=== PATIENT | male | born 1945 | race Caucasian/White ===

== ENCOUNTER → 2017-10-24 | Outpatient (CLI) | payer MEDICARE, OTHER ==
[~2017-10-24] MED LIST: ALLOPURINOL100 MG PO; AZOPT10 ML; FINASTERIDE5 MG PO; LOTREL 5-10 MG1 EACH PO; LUMIGAN2.5 M1 OP
--- NOTE | 2017-10-24 12:48 | Diagnostic Imaging Report ---
PROCEDURE:X-RAY ABDOMEN - KUB COMPARISON:Patients [facility], CT, CT ABDOMEN/PELVIS WO, 09/19/2016, 8:37. Patients [facility], DX, ABDOMEN-1VIEW (KUB), 03/02/2017, 10:55. INDICATIONS:CALCULI OF KIDNEY FINDINGS: Also there are gas pattern. Ill-defined 4 mm radiopaque density projecting between the posterior aspect of the left 11th and 12th ribs, which may represent the previously visualized nonobstructing calculus in the inferior pole of the left kidney. No other radiopaque densities project over the renal shadows, expected course of the ureters or bladder. Stable pelvic phleboliths. No acute bony abnormalities. CONCLUSION: Ill-defined 4 mm radiopaque density in the left upper quadrant may represent the previously visualized nonobstructing calculus in the inferior pole of the left kidney on CT. No other radiopaque densities project over the genitourinary system. Enzo Espinal M.D. Dictated by: Enzo Espinal M.D. on 10/24/2017 at 12:50 Electronically approved by: Enzo Espinal M.D. on 10/24/2017 at 12:50
--- NOTE | 2017-10-24 14:07 | Diagnostic Imaging Report ---
PROCEDURE:US RETROPERITONEAL ( KIDNEY ). COMPARISON:Patients [facility], CT, CT ABDOMEN/PELVIS WO, 09/19/2016, 8:37. INDICATIONS:CALCULUS OF KIDNEY TECHNIQUE: Araujo-scale and color sonographic images of the bilateral kidneys and bladder where obtained in transverse and longitudinal planes. FINDINGS: RIGHT KIDNEY: 11.5 cm, cortex 1.3 cm Cysts: Several cystic, anechoic lesions are noted: * 1.5 x 1.7 x 1.5 cm cystic, anechoic lesion in the lateral inferior pole, stable. * 4.2 x 3.3 x 3.7 cm mostly exophytic cystic, anechoic lesion in the mid aspect, stable. * 4.2 x 3.8 x 4.6 cm cystic, anechoic lesion in the medial mid aspect, stable. * 2.8 x 2.2 x 2.2 cystic, anechoic lesion in the mid aspect, stable Solid masses: None Stones: None Hydronephrosis: None Echogenicity: Increased LEFT KIDNEY: 12.0 cm, cortex 1.5 cm Cysts: Several cystic, anechoic lesions are noted: * 5.9 x 5.0 x 5.3 cm cystic, anechoic mostly exophytic lesion in the superior pole, stable. * 0.9 x 0.8 x 1.0 cm cystic, anechoic lesion in the inferior pole, decreased in size (previously measured approximately 1.8 x 1.3 x 1.9 cm). * 1.5 x 1.0 x 1.6 cm cystic, anechoic lesion in the mid aspect, stable Solid masses: None Stones: None Hydronephrosis: None Echogenicity: Increased Bladder: No focal lesions. Bilateral ureteral jets are identified. Prostate: 5.4 x 5.3 x 6.6 cm (estimated volume 96.8 CC) CONCLUSION: 1. Normal bilateral renal size. Increased renal cortical echogenicity, consistent with medical renal disease. 2. Multiple bilateral simple renal cysts, as described. All visualized cysts are stable, except for a 1.0 cm simple cyst in the inferior pole of the left kidney, which is slightly decreased in size. 3. Prostatomegaly, likely due to BPH. Enzo Espinal M.D. Dictated by: Enzo Espinal M.D. on 10/24/2017 at 14:09 Electronically approved by: Enzo Espinal M.D. on 10/24/2017 at 14:09
== END ==
LOC: US 10:06
PROVIDERS: ATTEND Urology
DX: N20.0 Calculus of kidney (principal)
CPT/HCPCS: 74018; 76770

== ENCOUNTER → 2017-11-08 | Outpatient (CLI) | payer MEDICARE, OTHER ==
--- NOTE | 2017-11-08 09:40 | Diagnostic Imaging Report ---
PROCEDURE: CT ABDOMEN AND PELVIS WITHOUT CONTRAST TECHNIQUE: The abdomen and pelvis were scanned utilizing a multidetector helical scanner from the diaphragm to the lesser trochanter. No oral or intravenous contrast was administered per renal stone protocol. Coronal and sagittal multiplanar reformations were obtained. COMPARISON: 09/19/2016 INDICATIONS: RENAL STONES FINDINGS: ABSENCE OF INTRAVENOUS CONTRAST DECREASES SENSITIVITY FOR DETECTION OF FOCAL LESIONS AND VASCULAR PATHOLOGY. LOWER THORAX: Bandlike atelectasis or fibrotic change in the lower lobes . No pleural or pericardial effusion. HEPATOBILIARY: No focal hepatic lesion or intrahepatic biliary ductal dilatation. Small calculi layering in the dependent portion of the gallbladder. No wall thickening or adjacent inflammatory change. SPLEEN: No splenomegaly. PANCREAS: No focal masses or ductal dilatation. ADRENALS: No adrenal nodules. KIDNEYS/URETERS: Bilateral Jef's plaques. 5.5 cm left upper pole exophytic cyst is unchanged. Scattered right renal cysts measuring up to 4.5 cm are stable to marginally increased in size. All lesions have average internal attenuation less than 20 Hounsfield units. Punctate nonobstructing right renal calculus seen on series 3 image 67. 3-4 mm nonobstructing left renal calculus seen on series 3 image 83. Remaining bilateral renal calculi described on the comparison examination are no longer visualized. No ureteral or bladder calculi. PELVIC ORGANS/BLADDER: Prostatomegaly with (6.6 cm transversely) with coarse prostatic calcifications. Urinary bladder is incompletely distended but is otherwise unremarkable. PERITONEUM / RETROPERITONEUM: No free air or fluid. LYMPH NODES: No pelvic sidewall, retroperitoneal, or mesenteric lymphadenopathy. VESSELS: The abdominal aorta is non-aneurysmal with atherosclerotic calcification. Evaluation is otherwise limited in the absence of intravenous contrast. GI TRACT: The large bowel shows no evidence of distention or wall thickening. Scattered diverticula along the course of the large bowel without evidence of diverticulitis. Normal appendix. Diverticulum projects superiorly from the fourth portion of the duodenum, unchanged. No small bowel dilatation to suggest obstruction. BONES AND SOFT TISSUES: The soft tissues show postsurgical changes probably related to right inguinal hernia repair. Small fat containing left inguinal hernia. No osseous destructive lesions. Multilevel degenerative disc changes and degenerative facet arthropathy of the lumbar spine. IMPRESSION: Decreased bilateral renal stone burden relative to 09/19/2016. No ureteral calculi or hydronephrosis. Prostatomegaly. Atherosclerotic vascular disease. Dictated by: Asif Dunne M.D. on 11/08/2017 at 9:42 Electronically approved by: Asif Dunne M.D. on 11/08/2017 at 9:42
== END ==
LOC: CT 08:35
PROVIDERS: ATTEND Urology
DX: N20.0 Calculus of kidney (principal)
CPT/HCPCS: 74176

== ENCOUNTER → 2018-04-03 | Outpatient (CLI) | payer MEDICARE, OTHER ==
--- NOTE | 2018-04-03 11:28 | Diagnostic Imaging Report ---
EXAMINATION: ABDOMEN-1VIEW (KUB) INDICATION: Renal calculus. COMPARISON: None FINDINGS: There is a 4 mm calcification overlying the right lower pole kidney. No evidence of calcification overlying the expected position of the ureters. Bilateral calcified phleboliths in the pelvis. There is a nonobstructive bowel gas pattern. There is no free intraperitoneal air. The bony structures are unremarkable. IMPRESSION: Likely 4 mm right lower pole renal stone. Signed by: Dr. Justyna Musa MD on 04/03/2018 11:24 AM
== END ==
LOC: RAD 10:49
PROVIDERS: ATTEND Urology
DX: N20.0 Calculus of kidney (principal)
CPT/HCPCS: 74018

== ENCOUNTER → 2018-04-20 | Outpatient (CLI) | payer MEDICARE, OTHER ==
--- NOTE | 2018-04-20 12:22 | Diagnostic Imaging Report ---
EXAMINATION: CT of the abdomen and pelvis without contrast. TECHNIQUE: Helical CT images of the abdomen and pelvis were performed from the lung bases to the lesser trochanters. No intravenous contrast was given per renal stone protocol. Coronal and sagittal reformatted images were obtained.Dose modulation, iterative reconstruction, and/or weight based adjustment of the mA/kV was utilized to reduce the radiation dose to as low as reasonably achievable. COMPARISON: November 08, 2017 CLINICAL HISTORY:Renal calculus DISCUSSION: ABSENCE OF INTRAVENOUS CONTRAST DECREASES SENSITIVITY FOR DETECTION OF FOCAL LESIONS AND VASCULAR PATHOLOGY. ABDOMEN/PELVIS: LOWER THORAX: Unremarkable. HEPATOBILIARY:No focal hepatic lesions. No biliary ductal dilation. The gallbladder is normal. SPLEEN: No splenomegaly. PANCREAS: No focal masses or ductal dilatation. ADRENALS: No adrenal nodules. KIDNEYS/URETERS: No hydronephrosis. Atrophy and perinephric stranding of the kidneys. Bilateral renal cysts, simple largest in the right kidney measuring 4.9 cm and the largest in the left kidney measuring 5.4 cm. Bilateral nonobstructing renal calculi (2 on the right with the largest measuring 2 mm and one on the left measuring 3 mm. PELVIC ORGANS/BLADDER: The bladder is normal. Calcifications within the seminal vesicles. PERITONEUM/RETROPERITONEUM: No free air or fluid. LYMPH NODES: No intra-abdominal,retroperitoneal, pelvic or inguinal lymphadenopathy. VESSELS: The celiac trunk,superior and inferior mesenteric and bilateral renal arteries are patent The portal, superior mesenteric and splenic veins are patent. GI TRACT: No distention or wall thickening. Duodenal diverticulum. Scattered colonic diverticulosis. BONES AND SOFT TISSUES: Fat-containing left inguinal hernia. IMPRESSION: Bilateral small nonobstructive renal calculi. Simple bilateral renal cysts. Signed by: Dr. Thomas Torres M.D. on 04/20/2018 12:19 PM
== END ==
LOC: CT 09:28
PROVIDERS: ATTEND Urology
DX: N20.0 Calculus of kidney (principal)
CPT/HCPCS: 74176

== ENCOUNTER 2018-12-10 11:52 | Emergency (ER) | payer MEDICARE, OTHER ==
[~2018-12-10] VITALS: Ht 177.8 cm; Wt 86.2 kg
--- OUTSIDE RECORDS SUMMARY | 2018-12-10 11:55 | XMS REPORT ---
Author Author [facility] Address Unknown Phone Unavailable Care Team Providers Care Parcel Wrapper Name Role Phone ADDISON HENDERSON Unavailable Unavailable Problems This patient has no known problems. Allergies, Adverse Reactions, Alerts This patient has no known allergies or adverse reactions. Medications This patient has no known medications. Results Test Description Test Time Test Comments Text Results Atomic Results Result Comments CT ABDOMEN/PELVIS WO 2018-04-20 12:11:00 [place] [address] Patient Name: RONNIE RAMON MR #: [id number] : 1945 Age/Sex: 73/M Req #: [id number] Adm Physician: Ordered by: ADDISON HENDERSON MD Report #: [id number] Location: CT Room/Bed: Procedure: [id number] CT/CT ABDOMEN/PELVIS WO Exam Date: 04/20/18 Exam Time: 1000 REPORT STATUS: Signed EXAMINATION: CT of the abdomen and pelvis without contrast. TECHNIQUE: Helical CT images of the abdomen and pelvis were performed from the lung bases to the lesser trochanters. No intravenous contrast was given per renal stone protocol. Coronal and sagittal reformatted images were obtained.Dose modulation, iterative reconstruction, and/or weight based adjustment of the mA/kV was utilized to reduce the radiation dose to as low as reasonably achievable. COMPARISON: November 08, 2017 CLINICAL HISTORY:Renal calculus DISCUSSION: ABSENCE OF INTRAVENOUS CONTRAST DECREASES SENSITIVITY FOR DETECTION OF FOCAL LESIONS AND VASCULAR PATHOLOGY. ABDOMEN/PELVIS: LOWER THORAX: Unremarkable. HEPATOBILIARY:No focal hepatic lesions. No biliary ductal dilation. The gallbladder is normal. SPLEEN: No splenomegaly. PANCREAS: No focal masses or ductal dilatation. ADRENALS: No adrenal nodules. KIDNEYS/URETERS: No hydronephrosis. Atrophy and perinephric stranding of the kidneys. Bilateral renal cysts, simple largest in the right kidney measuring 4.9 cm and the largest in the left kidney measuring 5.4 cm. Bilateral nonobstructing renal calculi (2 on the right with the largest measuring 2 mm and one on the left measuring 3 mm. PELVIC ORGANS/BLADDER: The bladder is normal. Calcifications within the seminal vesicles. PERITONEUM/RETROPERITONEUM: No free air or fluid. LYMPH NO HALLIE: No intra-abdominal,retroperitoneal, pelvic or inguinal lymphadenopathy. VESSELS: The celiac trunk,superior and inferior mesenteric and bilateral renal arteries are patent The portal, superior mesenteric and splenic veins are patent. GI TRACT: No distention or wall thickening. Duodenal diverticulum. Scattered colonic diverticulosis. BONES AND SOFT TISSUES: Fat-containing left inguinal hernia. IMPRESSION: Bilateral small nonobstructive renal calculi. Simple bilateral renal cysts. Signed by: Dr. Renetta Burr M.D. on 04/20/2018 12:19 PM Dictated By: RENETTA BURR MD 1219 Transcribed By: CORWIN on 04/20/18 1219 COPY TO: ADDISON HENDERSON MD [facility] 2018-04-03 11:22:00 [place] [address] Patient Name: RONNIE RAMON MR #: [id number] : 1945 Age/Sex: 73/M Req #: [id number] Adm Physician: Ordered by: ADDISON HENDERSON MD Report #: [id number] Location: [facility] Room/Bed: Procedure: [id number] DX/ABDOMEN-1VIEW (KUB) Exam Date: Exam Time: REPORT STATUS: Signed EXAMINATION: ABDOMEN-1VIEW (KUB) INDICATION: Renal calculus. COMPARISON: None FINDINGS: There is a 4 mm calcification overlying the right lower pole kidney. No evidence of calcification overlying the expected position of the ureters. Bilateral calcified phleboliths in the pelvis. There is a nonobstructive bowel gas pattern. There is no free intraperitoneal air. The bony structures are unremarkable. IMPRESSION: Likely 4 mm right lower pole renal stone. Signed by: Dr. Ashish Pablo MD on 04/03/2018 11:24 AM Dictated By: ASHISH PABLO MD 23 Transcribed By: CORWIN on 04/03/181123 COPY TO: ADDISON HENDERSON MD CT ABDOMEN/PELVIS WO [place] [address] Patient Name: RONNIE RAMON MR #: [id number] : 1945 Age/Sex: 72/M Req #: [id number] Adm Physician: Ordered by: ADDISON HENDERSON MD Report #: [id number] Location: CT Room/Bed: Procedure: [id number] CT/CT ABDOMEN/PELVIS WO Exam Date: 11/08/17 Exam Time: 904 REPORT STATUS: Signed PROCEDURE: CT ABDOMEN AND PELVIS WITHOUT CONTRAST TECHNIQUE: The abdomen and pelvis were scanned utilizing a multidetector helical scanner from the diaphragm to the lesser trochanter. No oral or intravenous contrast was administered per renal stone protocol. Coronal and sagittal multiplanar reformations were obtained. COMPARISON: 09/19/2016 INDICATIONS: RENAL STONES FINDINGS: ABSENCE OF INTRAVENOUS CONTRAST DECREASES SENSITIVITY FOR DETECTION OF FOCAL LESIONS AND VASCULAR PATHOLOGY. LOWER THORAX: Bandlike atelectasis or fibrotic change in the lower lobes . No pleural or pericardial effusion. HEPATOBILIARY: No focal hepatic lesion or intrahepatic biliary ductal dilatation. Small calculi layering in the dependent portion of the gallbladder. No wall thickening or adjacent inflammatory change. SPLEEN: No splenomegaly. PANCREAS: No focal masses or ductal dilatation. ADRENALS: No adrenal nodules. KIDNEYS/URETERS: Bilateral Jef's plaques. 5.5 cm left upper pole exophytic cyst is unchanged. Scattered right renal cysts measuring up to 4.5 cm are stable to marginally increased in size. All lesions have average internal attenuation less than 20 Hounsfield units. Punctate nonobstructing right renal calculus seen on series 3 image 67. 3-4 mm nonobstructing left renal calculus seen on series 3 image 83. Remaining bilateral renal calculi described on the comparison examination are no longer visualized. No ureteral or bladder calculi. PELVIC ORGANS/BLADDER: Prostatomegaly with (6.6 cm transversely) with coarse prostatic calcifications. Urinary bladder is incompletely distended but is otherwise unremarkable. PERITONEUM / RETROPERITONEUM: No free air or fluid. LYMPH NODES: No pelvic sidewall, retroperitoneal, or mesenteric lymphadenopathy. VESSELS: The abdominal aorta is non-aneurysmal with atherosclerotic calcification. Evaluation is otherwise limited in the absence of intravenous contrast. GI TRACT: The large bowel shows no evidence of distention or wall thickening. Scattered diverticula along the course of the large bowel without evidence of diverticulitis. Normal appendix. Diverticulum projects superiorly from the fourth portion of the duodenum, unchanged. No small bowel dilatation to suggest obstruction. BONES AND SOFT TISSUES: The soft tissues show postsurgical changes probably related to right inguinal hernia repair. Small fat containing left inguinal hernia. No osseous destructive lesions. Multilevel degenerative disc changes and degenerative facet arthropathy of the lumbar spine. IMPRESSION: Decreased bilateral renal stone burden relative to 09/19/2016. No ureteral calculi or hydronephrosis. Prostatomegaly. Atherosclerotic vascular disease. Dictated by: Latanya Chiu M.D. on 11/08/2017 at 9:42 Electronically approved by: Latanya Chiu M.D. on 11/08/2017 at 9:42 Dictated By: LATANYA CHIU MD 1 Transcribed By: EYAL on 11/08/17941 COPY TO: ADDISON HENDERSON MD ABDOMEN-1VIEW (KUB) [place] [address] Patient Name: RONNIE RAMON MR #: [id number] : 1945 Age/Sex: 72/M Req #: [id number] Adm Physician: Ordered by: ADDISON HENDERSON MD Report #: [id number] Location: Room/Bed: Procedure: [id number] DX/ABDOMEN-1VIEW (KUB) Exam Date: 10/24/17 Exam Time: 1035 REPORT STATUS: Signed PROCEDURE: X-RAY ABDOMEN - KUB COMPARISON: [facility], CT, CT ABDOMEN/PELVIS WO, 09/19/2016, 8:37. [facility], DX, ABDOMEN-1VIEW (KUB), 03/02/2017, 10:55. INDICATIONS: CALCULI OF KIDNEY FINDINGS: Also there are gas pattern. Ill-defined 4 mm radiopaque density projecting between the posterior aspect of the left 11th and 12th ribs, which may represent the previously visualized nonobstructing calculus in the inferior pole of the left kidney. No other radiopaque densities project over the renal shadows, expected course of the ureters or bladder. Stable pelvic phleboliths. No acute bony abnormalities. CONCLUSION: Ill-defined 4 mm radiopaque density in the left upper quadrant may represent the previously visualized nonobstructing calculus in the inferior pole of the left kidney on CT. No other radiopaque densities project over the genitourinary system. Jorge L Espinal M.D. Dictated by: Jorge L Espinal M.D. on 10/24/2017 at 12:50 Electronically approved by: Jorge L Espinal M.D. on 10/24/2017 at 12:50 Dictated By: JORGE L ESPINAL MD 1250 Trans cribed By: EYAL on 10/24/17 1250 COPY TO: ADDISON HENDERSON MD US RENAL RETROPERITONEAL COMP [place] [address] Patient Name: RONNIE RAMON MR #: [id number] : 1945 Age/Sex: 72/M Req #: [id number] Adm Physician: Ordered by: ADDISON HENDERSON MD Report #: [id number] Location: Room/Bed: Procedure: [id number] US/US RENAL RETROPERITONEAL COMP Exam Date: 10/24/17 Exam Time: 1101 REPORT STATUS: Signed PROCEDURE: US RETROPERITONEAL ( KIDNEY ). COMPARISON: Patients [facility], CT, CT ABDOMEN/PELVIS WO, 09/19/2016, 8:37. INDICATIONS: CALCULUS OF KIDNEY TECHNIQUE: Araujo-scale and color sonographic images of the bilateral kidneys and bladder where obtained in transverse and longitudinal planes. FINDINGS: RIGHT KIDNEY: 11.5 cm, cortex 1.3 cm Cysts: Several cystic, anechoic lesions are noted: * 1.5 x 1.7 x 1.5 cm cystic, anechoic lesion in the lateral inferior pole, stable. * 4.2 x 3.3 x 3.7 cm mostly exophytic cystic, anechoic lesion in the mid aspect, stable. * 4.2 x 3.8 x 4.6 cm cystic, anechoic lesion in the medial mid aspect, stable. * 2.8 x 2.2 x 2.2 cystic, anechoic lesion in the mid aspect, stable Solid masses: None Stones: None Hydronephrosis: None Echogenicity: Increased LEFT KIDNEY: 12.0 cm, cortex 1.5 cm Cysts: Several cystic, anechoic lesions are noted: * 5.9 x 5.0 x 5.3 cm cystic, anechoic mostly exophytic lesion in the superior pole, stable. * 0.9 x 0.8 x 1.0 cm cystic, anechoic lesion in the inferior pole, decreased in size (previously measured approximately 1.8 x 1.3 x 1.9 cm). * 1.5 x 1.0 x 1.6 cm cystic, anechoic lesion in the mid aspect, stable Solid masses: None Stones: None Hydronephrosis: None Echogenicity: Increased Bladder: No focal lesions. Bilateral ureteral jets are identified. Prostate: 5.4 x 5.3 x 6.6 cm (estimated volume 96.8 CC) CONCLUSION: 1. Normal bilateral renal size. Increased renal cortical echogenicity, consistent with medical renal disease. 2. Multiple bilateral simple renal cysts, as described. All visualized cysts are stable, except for a 1.0 cm simple cyst in the inferior pole of the left kidney, which is slightly decreased in size. 3. Prostatomegaly, likely due to BPH. Jorge L Espinal M.D. Dictated by: Jorge L Espinal M.D. on 10/24/2017 at 14:09 Electronically approved by: Jorge L Espinal M.D. on 10/24/2017 at 14:09 Dictated By: JORGE L ESPINAL MD 08 Transcribed By: EYAL on 10/24/171408 COPY TO: ADDISON HENDERSON MD ABDOMEN-1VIEW ([facility]) [place] [address] Patient Name: RONNIE RAMON MR #: [id number] : 1945 Age/Sex: 72/M Req #: [id number] [facility] Physician: Ordered by: ADDISON HENDERSON MD Report #: [id number] Location: [facility] Room/Bed: Procedure: [id number] DX/ABDOMEN-1VIEW (KUB) Exam Date: 03/02/17 Exam Time: 1100 REPORT STATUS: Signed PROCEDURE: X-RAY ABDOMEN - KUB COMPARISON: Abdomen one view 10/28/2016. CT abdomen and pelvis 09/19/2016 INDICATIONS: HISTORY OF CALCULI FINDINGS: There is a non-obstructed bowel-gas pattern. There are no calcifications projected over the renal shadows, expected course of the ureters or bladder. There are no acute osseous abnormalities. The lung bases are clear. Phleboliths are present in the pelvis. CONCLUSION: No acute radiographic abnormality. Dictated by: Parker Tai M.D. on 03/02/2017 at 11:41 Electronically approved by: Parker Tai M.D. on 03/02/2017 at 11:41 Dictated By: PARKER TAI MD 1141 Transcribed By: EYAL on 03/02/17 1141 COPY TO: ADDISON HENDERSON MD
[2018-12-10] MEDS ORDERED: ASPIRIN 81 MG CHEW TAB PO ONE (12:15)
[2018-12-10 12:33] LABS: BASOPHILS % 0.3 % (0.0-1.0); EOSINOPHILS % 0.3 % (0.0-6.0); HEMATOCRIT 38.9 % (38.2-49.6); HEMOGLOBIN 13.3 g/dL (14.0-18.0); LYMPHOCYTES % 10.3 % (18.0-39.1); MEAN CORPUSCULAR HGB CONC 34.2 g/dL (31-35); MEAN CORPUSCULAR VOLUME 90.7 fL (81-99); MONOCYTES # (AUTO) 0.4 (0.2-0.8); MONOCYTES % 4.3 % (4.4-11.3); NEUTROPHILS # (AUTO) 8.6 (2.1-6.9); NEUTROPHILS % 84.4 % (38.7-80.0); PLATELET COUNT 206 x10e3/uL (140-360); RED BLOOD COUNT 4.29 x10e6/uL (4.3-5.7); RED CELL DISTRIBUTION WIDTH 13.2 % (11.7-14.4)
[2018-12-10 12:34] LABS: BILIRUBIN,URINE SMALL (NEGATIVE); CLARITY,URINE SL CLOUDY (CLEAR); COLOR,URINE YELLOW (YELLOW); KETONES,URINE NEGATIVE (NEGATIVE); LEUKOCYTE ESTERASE ,URINE TRACE (NEGATIVE); NITRITE,URINE NEGATIVE (NEGATIVE); PROTEIN,URINE DIPSTICK TRACE (NEGATIVE); URINE UROBILINOGEN 1 mg/dL (0.2 - 1)
[2018-12-10 12:57] LABS: ALANINE AMINOTRANSFERASE 34 IU/L (0-55); ALBUMIN/GLOBULIN RATIO 1.6 (0.8-2.0); ALKALINE PHOSPHATASE 61 IU/L (40-150); AMYLASE 57 U/L (25-125); ANION GAP 12.8 mmol/L (8-16); BLOOD UREA NITROGEN 21 mg/dL (7-26); BUN/CREATININE RATIO 14 (6-25); CALCIUM 9.1 mg/dL (8.4-10.2); CARBON DIOXIDE 23 mmol/L (22-29); CHLORIDE 107 mmol/L (98-107); CREATINE KINASE 111 IU/L (30-200); CREATININE, SERUM 1.53 mg/dL (0.72-1.25); EST GLOMERULAR FILTRATION RATE 45 ML/MIN (60-); GLUCOSE 174 mg/dL (74-118); LIPASE 30 U/L (8-78); POTASSIUM 3.8 mmol/L (3.5-5.1); SODIUM 139 mmol/L (136-145)
[2018-12-10 13:13] LABS: AMORPHOUS SEDIMENT,URINE MODERATE (FEW); BACTERIA,URINE FEW /HPF; EPITHELIAL CELLS,URINE FEW /LPF; MUCUS,URINE MODERATE (RARE); WBC,URINE (MAN) 0-5 /HPF (0-5)
[2018-12-10 13:15] LABS: CREATINE KINASE MB < 1.00 ng/mL (0-4.3)
--- NOTE | 2018-12-10 13:21 | Diagnostic Imaging Report ---
EXAMINATION: CHEST SINGLE (PORTABLE) INDICATION: Chest pain. COMPARISON: None FINDINGS: TUBES and LINES: None. LUNGS: Low lung volumes which decreases sensitivity and specificity for pathology. There is no evidence of pneumonia or pulmonary edema. PLEURA: No pleural effusion or pneumothorax. HEART AND MEDIASTINUM: The cardiomediastinal silhouette is unremarkable. BONES AND SOFT TISSUES: No acute osseous abnormality. UPPER ABDOMEN: No free air under the diaphragm. IMPRESSION: No acute radiographic abnormality. Signed by: Dr. Justyna Musa MD on 12/10/2018 1:17 PM
[2018-12-10 14:45] VITALS: BP 133/79
== END 2018-12-10 14:50 | disposition home or self-care (01) ==
LOC: ER 11:52
DX: R10.13 Epigastric pain (principal); K29.00 Acute gastritis without bleeding; I10 Essential (primary) hypertension; H40.9 Unspecified glaucoma
CPT/HCPCS: 36415; 71045; 80053; 81001; 82150; 82550; 82553; 83690; 84484; 85025; 93005; 99283

== ENCOUNTER → 2019-03-14 | Outpatient (CLI) | payer MEDICARE, OTHER ==
--- NOTE | 2019-03-14 11:28 | Diagnostic Imaging Report ---
CT of the abdomen and pelvis, without contrast, 03/14/2019. History: History of stones. Comparison: 04/20/2018. Technique: Multidetector CT scanning of the abdomen and pelvis was performed from the level of the lung bases to the inferior pubic rami without intravenous or oral contrast. Coronal and sagittal multiplanar reformations were obtained. RADIATION DOSE: Total DLP: 500 mGy*cm Dose modulation, iterative reconstruction, and/or weight based adjustment of the mA/kV was utilized to reduce the radiation dose to as low as reasonably achievable. Discussion: Examination is limited without contrast. Lung bases: There is bibasilar atelectasis. Abdomen: A 2 mm stone is present in the lower pole of the right kidney. A 3 mm stone is present in the lower pole of the left kidney. There is no evidence of hydronephrosis. Multiple simple cysts are present bilaterally, the largest on the right measuring 5.1 cm and the largest on the left measuring 3.5 cm. The liver, gallbladder, biliary tree, spleen, pancreas, and adrenal glands are unremarkable. The abdominal aorta is mildly calcified but within normal limits for size. There is no bowel dilatation. Scattered colonic diverticuli are present without evidence of adjacent inflammation. The appendix is visualized and is normal. There is no evidence of adenopathy or free fluid. Pelvis: The bladder is unremarkable. The prostate is enlarged measuring 6.8 cm in transverse diameter with several calcifications. Calcified phleboliths are present bilaterally. There is no evidence of free fluid or adenopathy. Bones and soft tissues: Degenerative changes are present throughout the lumbar spine without evidence of lytic or sclerotic lesion. There is grade 1 spondylolisthesis of L4 and L5 without evidence of spondylolysis. IMPRESSION: 1. Small nonobstructing bilateral renal calculi without significant change. 2. Bilateral simple renal cysts. 3. Scattered colonic diverticuli without evidence of diverticulitis. 4. Prostatomegaly. Signed by: Marco Will on 03/14/2019 11:24 AM
== END ==
LOC: CT 09:32
PROVIDERS: ATTEND Urology
DX: N20.0 Calculus of kidney (principal)
CPT/HCPCS: 74176

== ENCOUNTER → 2020-01-01 | Outpatient (CLI) | payer MEDICARE, OTHER ==
--- NOTE | 2020-01-01 12:47 | Diagnostic Imaging Report ---
Exam: KUB - 2 views Indication: Renal calculus Comparison: CT abdomen and pelvis of 03/14/2019 Findings: Left lower pole renal calculus measures up to 3 mm. Right renal calculi measure up to 4 mm. Nonobstructive bowel gas pattern. No free air. Phleboliths in the pelvis. No acute osseous injury. Impression: Bilateral renal calculi measure up to 4 mm on the right and 3 mm on the left. Signed by: Leonardo Alcantar MD on 01/01/2020 12:43 PM
== END ==
LOC: RAD 10:57
PROVIDERS: ATTEND Urology
DX: N20.0 Calculus of kidney (principal); N18.9 Chronic kidney disease, unspecified
CPT/HCPCS: 74018

== ENCOUNTER 2020-04-01 14:46 | Inpatient (IN) | payer MEDICARE, OTHER ==
[~2020-04-01] VITALS: Ht 177.8 cm; Wt 85.7 kg
[2020-04-01] MEDS ORDERED: ASPIRIN 81 MG CHEW TAB PO ONE (15:00)
[2020-04-01] MEDS ORDERED: SODIUM CHLORIDE 0.9% 500ML 500 ML IV STA ×2 (15:21→21:02)
[2020-04-01] MEDS ORDERED: ONDANSETRON HCL INJ 2MG/ML 2ML 2 MG/ML VIAL IV STA (15:21)
[2020-04-01 15:44] LABS: BASOPHILS # (AUTO) 0.1 (0.0-0.1); BASOPHILS % 0.4 % (0.0-1.0); EOSINOPHILS % 0.2 % (0.0-6.0); HEMATOCRIT 39.1 % (38.2-49.6); LYMPHOCYTES # (AUTO) 1.2 (1.0-3.2); LYMPHOCYTES % 9.1 % (18.0-39.1); MEAN CORPUSCULAR HEMOGLOBIN 30.4 pg (28-32); MEAN CORPUSCULAR HGB CONC 33.2 g/dL (31-35); MEAN CORPUSCULAR VOLUME 91.6 fL (81-99); MONOCYTES # (AUTO) 0.4 (0.2-0.8); MONOCYTES % 2.8 % (4.4-11.3); NEUTROPHILS # (AUTO) 11.5 (2.1-6.9); NEUTROPHILS % 87.1 % (38.7-80.0); PLATELET COUNT 202 x10e3/uL (140-360); RED BLOOD COUNT 4.27 x10e6/uL (4.3-5.7); RED CELL DISTRIBUTION WIDTH 12.6 % (11.7-14.4)
[2020-04-01] MEDS ORDERED: PANTOPRAZOLE 40 MG 10ML VIAL IV ONE (15:45)
[2020-04-01 15:53] LABS: INR 0.91; PARTIAL THROMBOPLASTIN TIME 25.2 seconds (23.8-35.5); PROTHROMBIN TIME 12.7 seconds (11.9-14.5)
[2020-04-01 16:03] LABS: ALBUMIN 3.8 g/dL (3.5-5.0); ALBUMIN/GLOBULIN RATIO 1.6 (0.8-2.0); ANION GAP 16.9 mmol/L (8-16); CALCIUM 8.6 mg/dL (8.4-10.2); CREATININE, SERUM 1.49 mg/dL (0.72-1.25); POTASSIUM 3.9 mmol/L (3.5-5.1)
[2020-04-01 16:09] LABS: CREATINE KINASE MB 1.3 ng/mL (0-5.0)
[2020-04-01] MEDS ORDERED: SODIUM CHLORIDE 0.9% 50ML 50 ML ONE (17:51)
[2020-04-01] MEDS ORDERED: IOPAMIDOL 370 MG/ML 200 ML INFUS..BTL INJ ONE (17:51)
[2020-04-01 19:22] LABS: BILIRUBIN,URINE NEGATIVE (NEGATIVE); CLARITY,URINE CLEAR (CLEAR); COLOR,URINE YELLOW (YELLOW); KETONES,URINE NEGATIVE (NEGATIVE); LEUKOCYTE ESTERASE ,URINE NEGATIVE (NEGATIVE); NITRITE,URINE NEGATIVE (NEGATIVE); PROTEIN,URINE DIPSTICK NEGATIVE (NEGATIVE); URINE UROBILINOGEN 1 mg/dL (0.2 - 1)
[2020-04-01 19:33] LABS: WBC,URINE (MAN) 0-5 /HPF (0-5)
[2020-04-01] MEDS ORDERED: ACETAMINOPHEN 325 MG TAB PO ONE (19:45)
[2020-04-01] MEDS ORDERED: ACETAMINOPHEN 325 MG TAB ONE (19:49)
[2020-04-01] MEDS: CEFEPIME 1GM/NS 0.9% 50 ML 50 ML IV SCH (19:52)
[2020-04-01] MEDS ORDERED: SODIUM CHLORIDE 0.9% 1000ML 1,000 ML IV ONE (20:30)
[2020-04-01] MEDS ORDERED: FLOMAX0.4 MG PO (23:18)
[2020-04-01] MEDS ORDERED: POTASSIUM CITR10 MEQ PO (23:18)
[2020-04-01 23:50] VITALS: BP 135/77
[2020-04-02] VITALS (8 sets, daily range): BP systolic 130–149; BP diastolic 74–82
[2020-04-02] MEDS ORDERED: AMLODIPINE BESYL5 MG PO (00:53)
[2020-04-02 05:20] LABS: BASOPHILS % 0.2 % (0.0-1.0); EOSINOPHILS % 0.1 % (0.0-6.0); HEMATOCRIT 37.3 % (38.2-49.6); HEMOGLOBIN 12.3 g/dL (14.0-18.0); LYMPHOCYTES # (AUTO) 1.2 (1.0-3.2); LYMPHOCYTES % 5.6 % (18.0-39.1); MEAN CORPUSCULAR HEMOGLOBIN 30.2 pg (28-32); MEAN CORPUSCULAR VOLUME 91.6 fL (81-99); MONOCYTES % 4.7 % (4.4-11.3); NEUTROPHILS # (AUTO) 18.6 (2.1-6.9); NEUTROPHILS % 88.5 % (38.7-80.0); PLATELET COUNT 192 x10e3/uL (140-360); RED BLOOD COUNT 4.07 x10e6/uL (4.3-5.7); RED CELL DISTRIBUTION WIDTH 12.8 % (11.7-14.4)
[2020-04-02 05:37] LABS: ANION GAP 13.2 mmol/L (8-16); CALCIUM 8.4 mg/dL (8.4-10.2); CREATININE, SERUM 1.5 mg/dL (0.72-1.25); POTASSIUM 4.2 mmol/L (3.5-5.1)
[2020-04-02] MEDS: CEFEPIME 1GM/NS 0.9% 50 ML 50 ML IV SCH ×2 (07:45→20:41)
[2020-04-02] MEDS: ALLOPURINOL 100 MG TAB PO SCH (09:00)
[2020-04-02] MEDS: POTASSIUM CITRATE ER 10 MEQ TAB PO SCH (09:00)
[2020-04-02] MEDS: AMLODIPINE BESYLATE 5 MG TAB PO SCH (09:00)
[2020-04-02] MEDS: FINASTERIDE 5 MG TAB PO SCH (09:00)
[2020-04-02] MEDS ORDERED: VANCOMYCIN 1GM/NS 250 ML 250 ML IV ONE (11:15)
[2020-04-02] MEDS: METRONIDAZOLE 500MG/NS 100ML 100 ML IV SCH (16:00)
[2020-04-02] MEDS: BIMATOPROST(OPTH) 2.5 ML BOTTLE OP SCH (20:41)
[2020-04-02] MEDS: TAMSULOSIN HCL 0.4 MG CAP PO SCH (20:41)
[2020-04-03] VITALS (12 sets, daily range): BP systolic 120–152; BP diastolic 52–79
[2020-04-03] MEDS: METRONIDAZOLE 500MG/NS 100ML 100 ML IV SCH ×3 (00:13→17:17)
[2020-04-03] MEDS: CEFEPIME 1GM/NS 0.9% 50 ML 50 ML IV SCH ×2 (07:41→20:42)
[2020-04-03] MEDS ORDERED: MIDAZOLAM HCL 2 MG/2 ML VIAL ONE (08:03)
[2020-04-03] MEDS ORDERED: FENTANYL CITRATE/PF 100MCG/2 ML INJ ONE (08:03)
[2020-04-03] MEDS: FINASTERIDE 5 MG TAB PO SCH (14:20)
[2020-04-03] MEDS: ALLOPURINOL 100 MG TAB PO SCH (14:20)
[2020-04-03] MEDS: POTASSIUM CITRATE ER 10 MEQ TAB PO SCH (14:20)
[2020-04-03] MEDS: AMLODIPINE BESYLATE 5 MG TAB PO SCH (14:20)
[2020-04-03] MEDS: TAMSULOSIN HCL 0.4 MG CAP PO SCH (20:42)
[2020-04-03] MEDS: BIMATOPROST(OPTH) 2.5 ML BOTTLE OP SCH (20:42)
[2020-04-04] VITALS: BP 118/76
[2020-04-04] MEDS: METRONIDAZOLE 500MG/NS 100ML 100 ML IV SCH ×2 (00:20→08:27)
[2020-04-04 04:00] VITALS: BP 121/90
[2020-04-04 05:11] VITALS: BP 107/72
[2020-04-04 08:04] VITALS: BP_SYST 126; BP_SYST 147; BP_DIAS 67; BP_DIAS 77
[2020-04-04 08:19] VITALS: BP 126/77
[2020-04-04] MEDS: CEFEPIME 1GM/NS 0.9% 50 ML 50 ML IV SCH (08:27)
[2020-04-04] MEDS: ALLOPURINOL 100 MG TAB PO SCH (08:28)
[2020-04-04] MEDS: AMLODIPINE BESYLATE 5 MG TAB PO SCH (08:28)
[2020-04-04] MEDS: FINASTERIDE 5 MG TAB PO SCH (08:28)
[2020-04-04 11:59] VITALS: BP 118/76
[2020-04-04 12:42] LABS: BASOPHILS # (AUTO) 0.1 (0.0-0.1); BASOPHILS % 0.5 % (0.0-1.0); EOSINOPHILS # (AUTO) 0.2 (0.0-0.4); EOSINOPHILS % 1.6 % (0.0-6.0); HEMATOCRIT 38.6 % (38.2-49.6); HEMOGLOBIN 12.7 g/dL (14.0-18.0); LYMPHOCYTES # (AUTO) 1.2 (1.0-3.2); LYMPHOCYTES % 10.4 % (18.0-39.1); MEAN CORPUSCULAR HEMOGLOBIN 30.6 pg (28-32); MEAN CORPUSCULAR HGB CONC 32.9 g/dL (31-35); MONOCYTES # (AUTO) 0.7 (0.2-0.8); PLATELET COUNT 157 x10e3/uL (140-360); RED BLOOD COUNT 4.15 x10e6/uL (4.3-5.7); RED CELL DISTRIBUTION WIDTH 13.1 % (11.7-14.4)
== END 2020-04-04 14:38 | disposition home or self-care (01) | DRG 872 ==
LOC: ER 16:09 → ERHOLD 21:06 → MED/SURG2 23:50
PROVIDERS: ADMIT Internal Medicine; ATTEND Internal Medicine
PROC: 0BDG4ZX Extraction of Left Upper Lung Lobe, Percutaneous Endoscopic Approach, Diagnostic (ICD-10-PCS; principal; 2020-04-03)
DX: A41.9 Sepsis, unspecified organism (principal); E87.2 Acidosis; R91.8 Other nonspecific abnormal finding of lung field; I10 Essential (primary) hypertension; E78.5 Hyperlipidemia, unspecified; Z20.828 Contact with and (suspected) exposure to other viral communicable diseases
CPT/HCPCS: 32405; 36415; 71045; 71250; 74177; 74470; 76705; 77012; 78227; 80048; 80053; 81001; 82150; 82550; 82553; 83605; 83690; 83880; 84484; 85025; 85610; 85730; 87040; 88305; 88342; 93005; 99152; 99153; 99284; A9537; J0692; J2250; J2405; J3010; J3370; J7030; J7040; Q9967; U0002

== ENCOUNTER → 2020-10-09 | Outpatient (CLI) | payer MEDICARE, OTHER ==
[~2020-10-09] MED LIST changes: +AMLODIPINE BESYL5 MG PO; +FLOMAX0.4 MG PO; +POTASSIUM CITR10 MEQ PO
== END ==
LOC: RAD 13:04
PROVIDERS: ATTEND Urology
DX: N20.0 Calculus of kidney (principal)
CPT/HCPCS: 71046; 74018

== ENCOUNTER → 2020-10-29 | Outpatient (CLI) | payer MEDICARE, OTHER | LOC: CT 14:05 | PROVIDERS: ATTEND Urology | DX: N20.0 Calculus of kidney (principal) | CPT/HCPCS: 74176 ==

== ENCOUNTER 2020-12-12 06:20 | Inpatient (IN) | payer MEDICARE, OTHER ==
[~2020-12-12] VITALS: Ht 177.8 cm; Wt 85.7 kg
[2020-12-12] MEDS ORDERED: SODIUM CHLORIDE 0.9% 1000ML 1,000 ML IV STA ×2 (06:24→07:43)
[2020-12-12 06:43] LABS: BASOPHILS # (AUTO) 0.1 (0.0-0.1); BASOPHILS % 0.3 % (0.0-1.0); EOSINOPHILS % 0.1 % (0.0-6.0); HEMATOCRIT 45.6 % (38.2-49.6); HEMOGLOBIN 14.8 g/dL (14.0-18.0); LYMPHOCYTES # (AUTO) 0.9 (1.0-3.2); LYMPHOCYTES % 4.4 % (18.0-39.1); MEAN CORPUSCULAR HEMOGLOBIN 29.8 pg (28-32); MEAN CORPUSCULAR HGB CONC 32.5 g/dL (31-35); MEAN CORPUSCULAR VOLUME 91.8 fL (81-99); MONOCYTES # (AUTO) 0.6 (0.2-0.8); MONOCYTES % 2.9 % (4.4-11.3); NEUTROPHILS # (AUTO) 18.2 (2.1-6.9); NEUTROPHILS % 91.6 % (38.7-80.0); PLATELET COUNT 246 x10e3/uL (140-360); RED BLOOD COUNT 4.97 x10e6/uL (4.3-5.7); RED CELL DISTRIBUTION WIDTH 14.4 % (11.7-14.4)
[2020-12-12 07:04] LABS: ALBUMIN 4.7 g/dL (3.5-5.0); ALBUMIN/GLOBULIN RATIO 1.3 (0.8-2.0); ANION GAP 19.2 mmol/L (8-16); CALCIUM 10.4 mg/dL (8.4-10.2); CREATININE, SERUM 2.44 mg/dL (0.72-1.25)
[2020-12-12 07:09] LABS: POTASSIUM 5.2 mmol/L (3.5-5.1)
[2020-12-12 07:10] LABS: CREATINE KINASE MB 1.9 ng/mL (0-5.0)
[2020-12-12 08:46] LABS: CLARITY,URINE CLEAR (CLEAR); COLOR,URINE YELLOW (YELLOW); LEUKOCYTE ESTERASE ,URINE NEGATIVE (NEGATIVE); NITRITE,URINE NEGATIVE (NEGATIVE); PROTEIN,URINE DIPSTICK 1+ (NEGATIVE)
[2020-12-12 08:47] LABS: KETONES,URINE 1+ (NEGATIVE); URINE UROBILINOGEN 0.2 mg/dL (0.2 - 1)
[2020-12-12 09:19] LABS: BACTERIA,URINE RARE /HPF; EPITHELIAL CELLS,URINE FEW /LPF
[2020-12-12] MEDS ORDERED: ONDANSETRON HCL INJ 2MG/ML 2ML 2 MG/ML VIAL IV PRN (09:45)
[2020-12-12] MEDS ORDERED: CEFTRIAXONE 1 GM in SODIUM CHLORIDE 0.9% 50ML 50 ML IV ONE (09:45)
[2020-12-12 12:14] VITALS: BP 141/88
[2020-12-12] MEDS: SODIUM CHLORIDE 0.9% 1000ML 1,000 ML IV SCH ×2 (12:27→19:02)
[2020-12-12] MEDS: FINASTERIDE 5 MG TAB PO SCH (12:27)
[2020-12-12] MEDS ORDERED: SYMBICORT 16010.2 GM INH (12:30)
[2020-12-12] MEDS: CEFTRIAXONE 1 GM in SODIUM CHLORIDE 0.9% 50ML 50 ML IV SCH (12:45)
[2020-12-12 12:58] VITALS: BP 141/88
[2020-12-12 13:42] LABS: HEMATOCRIT 41.2 % (38.2-49.6); MEAN CORPUSCULAR HEMOGLOBIN 29.3 pg (28-32); MEAN CORPUSCULAR HGB CONC 31.6 g/dL (31-35); PLATELET COUNT 209 x10e3/uL (140-360); RED BLOOD COUNT 4.43 x10e6/uL (4.3-5.7); RED CELL DISTRIBUTION WIDTH 14.3 % (11.7-14.4)
[2020-12-12 13:57] LABS: ANION GAP 15.6 mmol/L (8-16); CALCIUM 9.1 mg/dL (8.4-10.2); CREATININE, SERUM 1.96 mg/dL (0.72-1.25); POTASSIUM 4.6 mmol/L (3.5-5.1)
[2020-12-12 17:03] VITALS: BP 148/87
[2020-12-12] MEDS: BUDESONIDE/FORMOTEROL 160/4.5MCG INHALER INH SCH ×2 (19:00→23:31)
[2020-12-12 19:59] VITALS: BP 166/96
[2020-12-12 20:00] VITALS: BP 166/80
[2020-12-12 20:11] LABS: CREATINE KINASE 116 IU/L (30-200)
[2020-12-12] MEDS: TAMSULOSIN HCL 0.4 MG CAP PO SCH (20:25)
[2020-12-12] MEDS: BIMATOPROST(OPTH) 2.5 ML BOTTLE OP SCH (20:25)
[2020-12-12 22:23] LABS: CREATINE KINASE 289 IU/L (30-200)
[2020-12-13] VITALS (8 sets, daily range): BP systolic 146–169; BP diastolic 83–97
[2020-12-13] MEDS: SODIUM CHLORIDE 0.9% 1000ML 1,000 ML IV SCH (01:00)
[2020-12-13] MEDS: METOCLOPRAMIDE HCL 10 MG/2ML VIAL IV SCH ×4 (05:01→23:47)
[2020-12-13 06:21] LABS: BASOPHILS % 0.5 % (0.0-1.0); EOSINOPHILS # (AUTO) 0.1 (0.0-0.4); EOSINOPHILS % 1.6 % (0.0-6.0); HEMATOCRIT 39.3 % (38.2-49.6); HEMOGLOBIN 12.5 g/dL (14.0-18.0); LYMPHOCYTES # (AUTO) 1.7 (1.0-3.2); MEAN CORPUSCULAR HEMOGLOBIN 29.4 pg (28-32); MEAN CORPUSCULAR HGB CONC 31.8 g/dL (31-35); MEAN CORPUSCULAR VOLUME 92.5 fL (81-99); MONOCYTES # (AUTO) 0.7 (0.2-0.8); MONOCYTES % 9.4 % (4.4-11.3); NEUTROPHILS # (AUTO) 5.3 (2.1-6.9); NEUTROPHILS % 67.2 % (38.7-80.0); PLATELET COUNT 192 x10e3/uL (140-360); RED BLOOD COUNT 4.25 x10e6/uL (4.3-5.7); RED CELL DISTRIBUTION WIDTH 14.2 % (11.7-14.4)
[2020-12-13 06:50] LABS: ALBUMIN 3.7 g/dL (3.5-5.0); ALBUMIN/GLOBULIN RATIO 1.4 (0.8-2.0); ANION GAP 13.3 mmol/L (8-16); CALCIUM 8.6 mg/dL (8.4-10.2); CREATININE, SERUM 1.4 mg/dL (0.72-1.25); MAGNESIUM 1.8 MG/DL (1.3-2.1); PHOSPHORUS 2.7 MG/DL (2.3-4.7); POTASSIUM 4.3 mmol/L (3.5-5.1)
[2020-12-13 07:11] LABS: CREATINE KINASE 293 IU/L (30-200)
[2020-12-13] MEDS: FINASTERIDE 5 MG TAB PO SCH (09:00)
[2020-12-13] MEDS: CEFTRIAXONE 1 GM in SODIUM CHLORIDE 0.9% 50ML 50 ML IV SCH (14:00)
[2020-12-13] MEDS: BUDESONIDE/FORMOTEROL 160/4.5MCG INHALER INH SCH (19:22)
[2020-12-13] MEDS: HEPARIN SOD (PORCINE) 5,000 UNIT/ML VIAL SC SCH (20:45)
[2020-12-13] MEDS: TAMSULOSIN HCL 0.4 MG CAP PO SCH (20:45)
[2020-12-13] MEDS: BIMATOPROST(OPTH) 2.5 ML BOTTLE OP SCH (20:45)
[2020-12-13] MEDS ORDERED: ALLOPURINOL 100 MG TAB PO SCH (21:00)
[2020-12-14] VITALS: BP 166/95
[2020-12-14 04:00] VITALS: BP_SYST 144; BP_SYST 177; BP_DIAS 75; BP_DIAS 87
[2020-12-14] MEDS: METOCLOPRAMIDE HCL 10 MG/2ML VIAL IV SCH ×2 (05:43→12:00)
[2020-12-14] MEDS: BUDESONIDE/FORMOTEROL 160/4.5MCG INHALER INH SCH (07:35)
[2020-12-14 08:00] VITALS: BP 144/87
[2020-12-14 08:21] VITALS: BP 147/91
[2020-12-14] MEDS: FINASTERIDE 5 MG TAB PO SCH (09:00)
[2020-12-14] MEDS: HEPARIN SOD (PORCINE) 5,000 UNIT/ML VIAL SC SCH (09:00)
[2020-12-14] MEDS ORDERED: ONDANSETRON HCL 4 MG ORAL DISINTEGRATING TAB PO PRN (09:00)
[2020-12-14] MEDS ORDERED: CEFUROXIME250 MG PO (10:37)
[2020-12-14] MEDS: CEFTRIAXONE 1 GM in SODIUM CHLORIDE 0.9% 50ML 50 ML IV SCH (12:45)
== END 2020-12-14 14:25 | disposition home or self-care (01) | DRG 872 ==
LOC: ER 07:45 → ERHOLD 09:42 → MED/SURG2 11:42
PROVIDERS: ADMIT Internal Medicine Pulmonary Disease; ATTEND Internal Medicine Pulmonary Disease
DX: A41.9 Sepsis, unspecified organism (principal); N17.9 Acute kidney failure, unspecified; N39.0 Urinary tract infection, site not specified; E87.2 Acidosis; E86.0 Dehydration; E87.5 Hyperkalemia; N40.0 Benign prostatic hyperplasia without lower urinary tract symptoms; E78.5 Hyperlipidemia, unspecified; N18.9 Chronic kidney disease, unspecified; I10 Essential (primary) hypertension; K52.9 Noninfective gastroenteritis and colitis, unspecified; Z85.118 Personal history of other malignant neoplasm of bronchus and lung; Z87.442 Personal history of urinary calculi; Z87.891 Personal history of nicotine dependence
CPT/HCPCS: 36415; 71045; 74176; 76705; 80048; 80053; 81001; 82550; 82553; 83605; 83735; 83880; 84100; 84484; 85007; 85025; 85027; 87040; 87086; 93005; 99284; J0696; J1644; J2765; J7030

== ENCOUNTER → 2021-10-05 | Outpatient (CLI) | payer MEDICARE, OTHER ==
[~2021-10-05] MED LIST changes: +CEFUROXIME250 MG PO; +SYMBICORT 16010.2 GM INH
== END ==
LOC: RAD 10:31
PROVIDERS: ATTEND Urology
DX: N20.0 Calculus of kidney (principal)
CPT/HCPCS: 74018

== ENCOUNTER → 2023-09-29 | Day surgery (SDC) | payer MEDICARE, OTHER ==
[2023-08-29 12:00] LABS: BASOPHILS % 0.3 % (0.0-1.0); EOSINOPHILS # (AUTO) 0.1 (0.0-0.4); EOSINOPHILS % 1.3 % (0.0-6.0); HEMATOCRIT 40.5 % (38.2-49.6); HEMOGLOBIN 13.3 g/dL (14.0-18.0); LYMPHOCYTES % 21.6 % (18.0-39.1); MEAN CORPUSCULAR HEMOGLOBIN 31.1 pg (28-32); MEAN CORPUSCULAR HGB CONC 32.8 g/dL (31-35); MEAN CORPUSCULAR VOLUME 94.6 fL (81-99); MONOCYTES # (AUTO) 0.8 (0.2-0.8); MONOCYTES % 8.9 % (4.4-11.3); NEUTROPHILS # (AUTO) 6.4 (2.1-6.9); NEUTROPHILS % 67.6 % (38.7-80.0); PLATELET COUNT 222 x10e3/uL (140-360); RED BLOOD COUNT 4.28 x10e6/uL (4.3-5.7); WHITE BLOOD COUNT 9.41 x10e3/uL (4.8-10.8)
[2023-08-29 12:20] LABS: ANION GAP 16.7 mmol/L (8-16); CALCIUM 8.2 mg/dL (8.4-10.2); CREATININE, SERUM 1.27 mg/dL (0.72-1.25); POTASSIUM 3.7 mmol/L (3.5-5.1); URIC ACID 6.8 mg/dL (4.8-8.0)
[2023-08-30 15:15] LABS: CALCIUM 9.1 mg/dL (8.6-10.2)
[2023-09-26 11:04] LABS: BASOPHILS # (AUTO) 0.1 (0.0-0.1); BASOPHILS % 0.6 % (0.0-1.0); EOSINOPHILS # (AUTO) 0.1 (0.0-0.4); EOSINOPHILS % 1.3 % (0.0-6.0); HEMATOCRIT 39.7 % (38.2-49.6); LYMPHOCYTES # (AUTO) 2.5 (1.0-3.2); LYMPHOCYTES % 28.6 % (18.0-39.1); MEAN CORPUSCULAR HEMOGLOBIN 30.7 pg (28-32); MEAN CORPUSCULAR HGB CONC 32.7 g/dL (31-35); MEAN CORPUSCULAR VOLUME 93.6 fL (81-99); MONOCYTES # (AUTO) 0.7 (0.2-0.8); MONOCYTES % 8.4 % (4.4-11.3); NEUTROPHILS # (AUTO) 5.2 (2.1-6.9); NEUTROPHILS % 60.8 % (38.7-80.0); PLATELET COUNT 213 x10e3/uL (140-360); RED BLOOD COUNT 4.24 x10e6/uL (4.3-5.7); RED CELL DISTRIBUTION WIDTH 12.1 % (11.7-14.4); WHITE BLOOD COUNT 8.58 x10e3/uL (4.8-10.8)
[2023-09-26 11:23] LABS: ANION GAP 16.5 mmol/L (8-16); CALCIUM 9.6 mg/dL (8.4-10.2); CREATININE, SERUM 1.45 mg/dL (0.72-1.25); POTASSIUM 4.5 mmol/L (3.5-5.1); URIC ACID 7.6 mg/dL (4.8-8.0)
[~2023-09-29] MED LIST changes: +CEFTRIAXONE 1 GM VIAL ONE; +EPHEDRINE SULFATE INJ 50 MG/ML VIAL ONE; +FENTANYL CITRATE/PF 100MCG/2 ML INJ ONE; +IOPAMIDOL 610MG/1ML 300 MG/ML VIAL IV ONE; +LACTATED RINGER'S 1,000 ML ONE; +LIDOCAINE HCL 2% LOCAL INJ 5 ML SDV VIAL INJ ONE; +ONDANSETRON HCL INJ 2MG/ML 2ML 2 MG/ML VIAL ONE; +PROPOFOL IV EMULSION 10 MG/ML 20 ML VIAL ONE; +TYLENOL325 MG PO; +VITAMIN B121000 MCG PO; +VITAMIN C1000 MG PO; +[UNRECOGNIZED DRUG - OTHER] PO
[2023-09-29 11:45] VITALS: BP 167/94; PULSE 70; RESP 18; O2SAT 98
== END | disposition home or self-care (01) ==
LOC: OR 06:09
PROVIDERS: ATTEND Urology
DX: N20.0 Calculus of kidney (principal); I12.9 Hypertensive chronic kidney disease with stage 1 through stage 4 chronic kidney disease, or unspecified chronic kidney disease; N18.9 Chronic kidney disease, unspecified; N47.5 Adhesions of prepuce and glans penis; N40.1 Benign prostatic hyperplasia with lower urinary tract symptoms; N13.8 Other obstructive and reflux uropathy; N32.89 Other specified disorders of bladder; M19.90 Unspecified osteoarthritis, unspecified site; C34.90 Malignant neoplasm of unspecified part of unspecified bronchus or lung; Z88.6 Allergy status to analgesic agent; Z01.812 Encounter for preprocedural laboratory examination; Z01.818 Encounter for other preprocedural examination; Z79.899 Other long term (current) drug therapy; Z87.891 Personal history of nicotine dependence
CPT/HCPCS: 36415 ×2; 50590; 71046; 74018 ×2; 80048 ×2; 83970 ×2; 84550 ×2; 85025 ×2; 93005; C1758; C1769; J0696; J2001; J2405; J2704; J3010; J7121; Q9967